=== PATIENT | female | born 1990 | race Caucasian/White ===

== ENCOUNTER 2020-10-07 11:24 | Emergency (ER) | payer BC ==
[~2020-10-07 11:24] MED LIST: NORCO 5-325 TA1 EACH PO
== END 2020-10-07 14:20 | disposition home or self-care (01) ==
LOC: ER1 11:24
DX: U07.1 COVID-19 (principal)
CPT/HCPCS: 71045; 99283

== ENCOUNTER 2021-11-09 13:33 | Emergency (ER) | payer SELFPAY ==
[2021-11-09 14:51] LABS: HEMOGLOBIN 9.2 gm/dl (12.3-15.3); RED BLOOD COUNT 4.43 M/UL (4.00-5.10); WHITE BLOOD COUNT 5.6 K/UL (4.5-11.0)
[2021-11-09 15:25] LABS: BUN/CREATININE RATIO 12 (0-10)
[2021-11-09] MEDS ORDERED: OMNICEF 300 MG300 MG PO (16:33)
== END 2021-11-09 17:01 | disposition home or self-care (01) ==
LOC: ER1 13:33
PROVIDERS: Student in an Organized Health Care Education/Training Program
DX: N64.4 Mastodynia (principal)
CPT/HCPCS: 71045; 76641; 80053; 82550; 82553; 84484; 84703; 85025; 85379; 93005; 99284